=== PATIENT | male | born 1945 | race Caucasian/White ===

== ENCOUNTER 2021-03-28 10:43 | Inpatient (IN) | payer MEDICARE ==
[~2021-03-28] VITALS: Ht 175.3 cm; Wt 93.4 kg
[~2021-03-28 10:43] MED LIST: AMIODARONE HCL200 MG PO; LOPRESSOR25 MG PO; LOSARTAN POTASS25 MG PO; METOPROLOL TART25 MG PO; POTASSIUM CHLO10 ME1 PO; TORSEMIDE10 MG
[2021-03-28 11:15] LABS: BASOPHILS # (AUTO) 0.1 (0.0-0.1); BASOPHILS % 0.7 % (0.0-1.0); EOSINOPHILS # (AUTO) 0.5 (0.0-0.4); EOSINOPHILS % 6.4 % (0.0-6.0); HEMATOCRIT 38.4 % (38.2-49.6); HEMOGLOBIN 12.4 g/dL (14.0-18.0); LYMPHOCYTES # (AUTO) 2.5 (1.0-3.2); LYMPHOCYTES % 33.4 % (18.0-39.1); MEAN CORPUSCULAR HEMOGLOBIN 31.9 pg (28-32); MEAN CORPUSCULAR HGB CONC 32.3 g/dL (31-35); MEAN CORPUSCULAR VOLUME 98.7 fL (81-99); MONOCYTES # (AUTO) 0.8 (0.2-0.8); MONOCYTES % 11.1 % (4.4-11.3); NEUTROPHILS # (AUTO) 3.5 (2.1-6.9); NEUTROPHILS % 48.3 % (38.7-80.0); PLATELET COUNT 209 x10e3/uL (140-360); RED BLOOD COUNT 3.89 x10e6/uL (4.3-5.7); RED CELL DISTRIBUTION WIDTH 13.7 % (11.7-14.4)
[2021-03-28 11:33] LABS: INR 0.95; PROTHROMBIN TIME 13.4 seconds (11.9-14.5)
[2021-03-28 11:42] LABS: ALBUMIN 3.8 g/dL (3.5-5.0); ANION GAP 14.9 mmol/L (8-16); CALCIUM 8.8 mg/dL (8.4-10.2); CREATININE, SERUM 1.76 mg/dL (0.72-1.25); MAGNESIUM 2.4 MG/DL (1.3-2.1); POTASSIUM 3.9 mmol/L (3.5-5.1)
[2021-03-28] MEDS: ACETYLCYSTEINE 200 MG/ML 4ML VIAL PO SCH ×2 (13:45→17:56)
[2021-03-28] MEDS ORDERED: SODIUM CHLORIDE 0.45% 1,000 ML IV ONE (13:45)
[2021-03-28 15:25] VITALS: BP 172/87
[2021-03-28] MEDS ORDERED: METOPROLOL SUCCINATE 50 MG TAB XL PO ONE (15:25)
[2021-03-28] MEDS ORDERED: ONDANSETRON HCL INJ 2MG/ML 2ML 2 MG/ML VIAL IV PRN (15:30)
[2021-03-28] MEDS ORDERED: ACETAMINOPHEN 325 MG TAB PO PRN (15:30)
[2021-03-28 16:00] VITALS: BP 172/87
[2021-03-28 19:37] LABS: CREATINE KINASE MB 1.3 ng/mL (0-5.0)
[2021-03-28] MEDS ORDERED: HYDRALAZINE HCL 20 MG/ML VIAL IV PRN (20:00)
[2021-03-28 20:58] VITALS: BP 139/87
[2021-03-28] MEDS: METOPROLOL SUCCINATE 50 MG TAB XL PO SCH (21:00)
[2021-03-28 21:50] VITALS: BP 142/70
[2021-03-29] VITALS (10 sets, daily range): BP systolic 131–158; BP diastolic 58–79
[2021-03-29 05:02] LABS: BASOPHILS # (AUTO) 0.1 (0.0-0.1); BASOPHILS % 0.8 % (0.0-1.0); EOSINOPHILS # (AUTO) 0.4 (0.0-0.4); EOSINOPHILS % 6.6 % (0.0-6.0); HEMATOCRIT 35.6 % (38.2-49.6); HEMOGLOBIN 11.5 g/dL (14.0-18.0); LYMPHOCYTES # (AUTO) 1.9 (1.0-3.2); LYMPHOCYTES % 29.1 % (18.0-39.1); MEAN CORPUSCULAR HEMOGLOBIN 31.9 pg (28-32); MEAN CORPUSCULAR HGB CONC 32.3 g/dL (31-35); MEAN CORPUSCULAR VOLUME 98.6 fL (81-99); MONOCYTES # (AUTO) 0.8 (0.2-0.8); MONOCYTES % 12.6 % (4.4-11.3); NEUTROPHILS # (AUTO) 3.3 (2.1-6.9); NEUTROPHILS % 50.7 % (38.7-80.0); PLATELET COUNT 223 x10e3/uL (140-360); RED BLOOD COUNT 3.61 x10e6/uL (4.3-5.7); RED CELL DISTRIBUTION WIDTH 13.7 % (11.7-14.4)
[2021-03-29 05:21] LABS: ANION GAP 16.8 mmol/L (8-16); CALCIUM 8.7 mg/dL (8.4-10.2); CREATININE, SERUM 1.46 mg/dL (0.72-1.25); POTASSIUM 3.8 mmol/L (3.5-5.1)
[2021-03-29 05:57] LABS: CREATINE KINASE MB 1.1 ng/mL (0-5.0)
[2021-03-29] MEDS: LOSARTAN POTASSIUM 25 MG TAB PO SCH (09:00)
[2021-03-29] MEDS: METOPROLOL SUCCINATE 50 MG TAB XL PO SCH ×2 (09:00→21:00)
[2021-03-29] MEDS ORDERED: MIDAZOLAM HCL 2 MG/2 ML VIAL ONE (10:11)
[2021-03-29] MEDS ORDERED: IOPAMIDOL 370 MG/ML 200 ML INFUS..BTL INJ ONE (10:12)
[2021-03-29] MEDS ORDERED: SODIUM CHLORIDE 0.9% 1000ML 1,000 ML ONE (10:12)
[2021-03-29] MEDS ORDERED: LIDOCAINE HCL 2% LOCAL 20 ML VIAL ONE (10:12)
[2021-03-29] MEDS ORDERED: FENTANYL CITRATE/PF 100MCG/2 ML INJ ONE (10:12)
[2021-03-29] MEDS ORDERED: HEPARIN SOD/SOD CHLORIDE 2,000 ML ONE (10:12)
[2021-03-29] MEDS: ACETYLCYSTEINE 200 MG/ML 4ML VIAL PO SCH ×2 (10:20→16:35)
[2021-03-29] MEDS: SODIUM CHLORIDE 0.45% 1,000 ML IV SCH (12:02)
[2021-03-29] MEDS ORDERED: AMIODARONE HCL 200 MG TAB PO ONE (22:00)
[2021-03-30] VITALS (14 sets, daily range): BP systolic 124–161; BP diastolic 56–87
[2021-03-30 05:50] LABS: BASOPHILS % 0.5 % (0.0-1.0); EOSINOPHILS # (AUTO) 0.5 (0.0-0.4); EOSINOPHILS % 5.7 % (0.0-6.0); HEMATOCRIT 35.6 % (38.2-49.6); HEMOGLOBIN 11.4 g/dL (14.0-18.0); LYMPHOCYTES # (AUTO) 1.5 (1.0-3.2); LYMPHOCYTES % 18.1 % (18.0-39.1); MEAN CORPUSCULAR HEMOGLOBIN 31.9 pg (28-32); MEAN CORPUSCULAR VOLUME 99.7 fL (81-99); MONOCYTES # (AUTO) 0.9 (0.2-0.8); MONOCYTES % 11.1 % (4.4-11.3); NEUTROPHILS # (AUTO) 5.2 (2.1-6.9); NEUTROPHILS % 64.2 % (38.7-80.0); PLATELET COUNT 199 x10e3/uL (140-360); RED BLOOD COUNT 3.57 x10e6/uL (4.3-5.7); RED CELL DISTRIBUTION WIDTH 13.9 % (11.7-14.4)
[2021-03-30 06:06] LABS: ANION GAP 14.3 mmol/L (8-16); CREATININE, SERUM 1.23 mg/dL (0.72-1.25); POTASSIUM 4.3 mmol/L (3.5-5.1)
[2021-03-30] MEDS: SODIUM CHLORIDE 0.45% 1,000 ML IV SCH (08:30)
[2021-03-30] MEDS: ASPIRIN 81 MG ENTERIC COATED PO SCH (09:59)
[2021-03-30] MEDS: METOPROLOL SUCCINATE 50 MG TAB XL PO SCH ×2 (09:59→21:00)
[2021-03-30] MEDS: LOSARTAN POTASSIUM 25 MG TAB PO SCH (09:59)
[2021-03-30] MEDS: FUROSEMIDE INJ 10 MG/ML 4 ML VIAL IV SCH ×2 (10:00→18:04)
[2021-03-30] MEDS ORDERED: LACTULOSE SYRUP 20 GM/30 ML UDC PO NR (12:30)
[2021-03-31] VITALS (12 sets, daily range): BP systolic 127–162; BP diastolic 56–87
[2021-03-31 05:41] LABS: ANION GAP 14.6 mmol/L (8-16); CALCIUM 9.2 mg/dL (8.4-10.2); CREATININE, SERUM 1.51 mg/dL (0.72-1.25); MAGNESIUM 2.1 MG/DL (1.3-2.1); POTASSIUM 3.6 mmol/L (3.5-5.1)
[2021-03-31] MEDS ORDERED: POTASSIUM CHLORIDE 20 MEQ TAB CR PO STA (08:12)
[2021-03-31] MEDS: LOSARTAN POTASSIUM 25 MG TAB PO SCH (08:29)
[2021-03-31] MEDS: ASPIRIN 81 MG ENTERIC COATED PO SCH (08:29)
[2021-03-31] MEDS: FUROSEMIDE INJ 10 MG/ML 4 ML VIAL IV SCH (08:29)
[2021-03-31] MEDS: METOPROLOL SUCCINATE 50 MG TAB XL PO SCH ×3 (16:50→22:17)
[2021-03-31] MEDS ORDERED: FUROSEMIDE INJ 10 MG/ML 4 ML VIAL IV SCH (17:00)
[2021-04-01] VITALS (16 sets, daily range): BP systolic 108–156; BP diastolic 60–90
[2021-04-01 06:07] LABS: ANION GAP 15.8 mmol/L (8-16); CALCIUM 9.5 mg/dL (8.4-10.2); CREATININE, SERUM 1.42 mg/dL (0.72-1.25); POTASSIUM 3.8 mmol/L (3.5-5.1)
[2021-04-01] MEDS: LOSARTAN POTASSIUM 25 MG TAB PO SCH (09:00)
[2021-04-01] MEDS ORDERED: MIDAZOLAM HCL 2 MG/2 ML VIAL ONE (09:59)
[2021-04-01] MEDS ORDERED: LIDOCAINE HCL 2% LOCAL 20 ML VIAL ONE (09:59)
[2021-04-01] MEDS ORDERED: FENTANYL CITRATE/PF 100MCG/2 ML INJ ONE (09:59)
[2021-04-01] MEDS ORDERED: SODIUM CHLORIDE 0.9% 250ML 250 ML ONE (10:00)
[2021-04-01] MEDS ORDERED: SODIUM CHLORIDE 0.9% 500ML 500 ML ONE (10:00)
[2021-04-01] MEDS ORDERED: Vancomycin IV 1 GM VIAL ONE (10:00)
[2021-04-01] MEDS ORDERED: SODIUM CHLORIDE 0.9% 1000ML 2,000 ML ONE (10:00)
[2021-04-01] MEDS ORDERED: GENTAMICIN SULFATE 40 MG/ML 2 ML VIAL ONE ×2 (10:03→11:21)
[2021-04-01] MEDS ORDERED: SODIUM CHLORIDE 0.9% 1000ML 1,000 ML ONE (11:14)
[2021-04-01] MEDS: ASPIRIN 81 MG ENTERIC COATED PO SCH (13:22)
[2021-04-01] MEDS: METOPROLOL SUCCINATE 50 MG TAB XL PO SCH (14:13)
[2021-04-01] MEDS ORDERED: Morphine 2mg Syringe 2 MG/ML SYR IV PRN (14:15)
[2021-04-01] MEDS: FUROSEMIDE INJ 10 MG/ML 2 ML VIAL IV SCH (18:52)
[2021-04-02] VITALS (7 sets, daily range): BP systolic 119–142; BP diastolic 67–79
[2021-04-02] MEDS: METOPROLOL SUCCINATE 50 MG TAB XL PO SCH ×3 (00:37→21:36)
[2021-04-02] MEDS: ASPIRIN 81 MG ENTERIC COATED PO SCH (11:15)
[2021-04-02] MEDS: FUROSEMIDE INJ 10 MG/ML 2 ML VIAL IV SCH ×2 (11:15→18:45)
[2021-04-02] MEDS: LOSARTAN POTASSIUM 25 MG TAB PO SCH (11:15)
[2021-04-02] MEDS: COLCHICINE 0.6 MG TAB PO SCH ×2 (13:48→21:36)
[2021-04-03] VITALS (9 sets, daily range): BP systolic 108–138; BP diastolic 65–76
[2021-04-03] MEDS: COLCHICINE 0.6 MG TAB PO SCH ×2 (08:49→21:20)
[2021-04-03] MEDS: ASPIRIN 81 MG ENTERIC COATED PO SCH (08:49)
[2021-04-03] MEDS: FUROSEMIDE INJ 10 MG/ML 2 ML VIAL IV SCH ×2 (08:49→16:13)
[2021-04-03] MEDS: METOPROLOL SUCCINATE 50 MG TAB XL PO SCH ×2 (08:50→21:20)
[2021-04-03] MEDS ORDERED: LOSARTAN POTASSIUM 25 MG TAB PO SCH (09:00)
[2021-04-04] VITALS (7 sets, daily range): BP systolic 125–133; BP diastolic 64–91
[2021-04-04] MEDS: COLCHICINE 0.6 MG TAB PO SCH (08:37)
[2021-04-04] MEDS: ASPIRIN 81 MG ENTERIC COATED PO SCH (08:37)
[2021-04-04] MEDS: FUROSEMIDE INJ 10 MG/ML 2 ML VIAL IV SCH ×2 (08:37→16:35)
[2021-04-04] MEDS: METOPROLOL SUCCINATE 50 MG TAB XL PO SCH (08:38)
[2021-04-04] MEDS ORDERED: ONDANSETRON HCL 4 MG ORAL DISINTEGRATING TAB PO PRN (11:30)
[2021-04-04] MEDS ORDERED: TOPROL XL50 MG PO (16:19)
[2021-04-04] MEDS ORDERED: Colchicine PO ×2 (16:19→18:25)
[2021-04-04] MEDS ORDERED: ASPIRIN EC81 MG PO (16:19)
== END 2021-04-04 18:42 | disposition home or self-care (01) | DRG 224 ==
LOC: ER 10:55 → ERHOLD 12:31 → IMCU 14:28 → MED/SURG 04-02 21:40
PROVIDERS: ADMIT Internal Medicine; ATTEND Internal Medicine
PROC: 4A023N7 Measurement of Cardiac Sampling and Pressure, Left Heart, Percutaneous Approach (ICD-10-PCS; 2021-03-29)
PROC: B2131ZZ Fluoroscopy of Multiple Coronary Artery Bypass Grafts using Low Osmolar Contrast (ICD-10-PCS; 2021-03-29)
PROC: B2111ZZ Fluoroscopy of Multiple Coronary Arteries using Low Osmolar Contrast (ICD-10-PCS; 2021-03-29)
PROC: B2151ZZ Fluoroscopy of Left Heart using Low Osmolar Contrast (ICD-10-PCS; 2021-03-29)
PROC: 0JPT0PZ Removal of Cardiac Rhythm Related Device from Trunk Subcutaneous Tissue and Fascia, Open Approach (ICD-10-PCS; principal; 2021-04-01)
PROC: 0JH609Z Insertion of Cardiac Resynchronization Defibrillator Pulse Generator into Chest Subcutaneous Tissue and Fascia, Open Approach (ICD-10-PCS; 2021-04-01)
PROC: 02HL3KZ Insertion of Defibrillator Lead into Left Ventricle, Percutaneous Approach (ICD-10-PCS; 2021-04-01)
PROC: 3E0102A Introduction of Anti-Infective Envelope into Subcutaneous Tissue, Open Approach (ICD-10-PCS; 2021-04-01)
DX: I49.01 Ventricular fibrillation (principal); I50.23 Acute on chronic systolic (congestive) heart failure; I13.0 Hypertensive heart and chronic kidney disease with heart failure and stage 1 through stage 4 chronic kidney disease, or unspecified chronic kidney disease; R55 Syncope and collapse; I25.10 Atherosclerotic heart disease of native coronary artery without angina pectoris; N18.30 Chronic kidney disease, stage 3 unspecified; I44.7 Left bundle-branch block, unspecified; E11.9 Type 2 diabetes mellitus without complications; E78.5 Hyperlipidemia, unspecified; Z95.1 Presence of aortocoronary bypass graft; Z82.49 Family history of ischemic heart disease and other diseases of the circulatory system; Z95.810 Presence of automatic (implantable) cardiac defibrillator; G62.9 Polyneuropathy, unspecified; I25.82 Chronic total occlusion of coronary artery; Z20.822 Contact with and (suspected) exposure to COVID-19; M10.072 Idiopathic gout, left ankle and foot; I46.2 Cardiac arrest due to underlying cardiac condition
CPT/HCPCS: 33224; 36415; 71045; 75820; 80048; 80053; 80061; 82550; 82553; 83735; 83880; 84484; 85025; 85379; 85610; 93005; 93306; 93459; 97139; 99152; 99153; 99284; C1760; C1769; C1882; C1887; C1898; C1900; J0690; J1580; J1940; J2001; J2250; J3010; J3370; J7030; J7040; J7050; Q9967; U0002